=== PATIENT | female | born 1985 | race Caucasian/White ===

== ENCOUNTER 2021-02-07 09:42 | Outpatient (CLI) | payer OTHER, SELFPAY ==
--- NOTE | ~2021-02-07 | US_ITS ---
EXAMINATION: US pelvic complete w TV DATE: 02/07/2021 10:22 INDICATION: Ovarian cyst, irregular bleeding and pelvic pain TECHNIQUE: Multiple transabdominal and endovaginal sonographic images of the pelvis were obtained. COMPARISON: None. FINDINGS: The uterus measures 9.0 x 4.6 x 5.8 cm. The endometrial complex measures 6 mm. There is a s mall amount of fluid in the endometrial canal. A section scar is noted in the lower anterior uterine body. The right ovary measures 1.6 x 2.4 x 1.4 cm. The left ovary measures 2.8 x 3.2 x 3.2 c m and contains a 2.2 cm cyst. There is normal vascular flow in the ovaries. There is no free fluid in the pelvis. IMPRESSION: 1. No sonographic correlate for the patient's symptoms. Reviewed, dictated and finalized at location B.
== END 2021-02-07 09:43 | disposition home or self-care (01) ==
PROVIDERS: PCP Family Medicine; Visit Provider Obstetrics & Gynecology
DX: N83.209 Unspecified ovarian cyst, unspecified side (principal); N93.9 Abnormal uterine and vaginal bleeding, unspecified
CPT/HCPCS: 76830; 76856

== ENCOUNTER 2021-02-17 13:34 | Outpatient (CLI) | payer OTHER, SELFPAY ==
[2021-02-17 14:09] LABS: Hematocrit 42.1 % (37.0-47.0); Hemoglobin 13.8 g/dL (12.0-15.0); Mean Corpuscular HGB Conc 32.8 g/dl (32-36); Mean Corpuscular Hemoglobin 32.6 pg (26-34); Mean Corpuscular Volume 99.5 fl (80-100); Mean Platelet Volume 10.7 fl (7.4-10.4); Platelet Count Result 156 k/mm3 (150-375); Red Blood Count 4.23 M/mm3 (4.2-5.4); Red Cell Distribution Width 11.9 % (11.5-14.5); White Blood Count 6.4 K/mm3 (4.5-10.0)
[2021-02-17 16:07] LABS: Thyroid Stimulating Hormone Reflex 0.363 uIU/mL (0.465-4.68)
[2021-02-17 17:41] LABS: Total Triiodothyronine (T3) 1.02 NG/ML (0.97-1.69)
== END 2021-02-17 13:35 | disposition home or self-care (01) ==
PROVIDERS: PCP Family Medicine; Visit Provider Obstetrics & Gynecology
DX: N92.1 Excessive and frequent menstruation with irregular cycle (principal)
CPT/HCPCS: 36415; 84439; 84443; 84480; 85027

== ENCOUNTER 2021-04-04 17:02 | Outpatient (CLI) | payer OTHER, SELFPAY ==
--- NOTE | ~2021-04-04 | US_ITS ---
EXAMINATION: US pelvic complete w TV DATE: 04/04/2021 17:31 INDICATION: Pelvic pain and excessive vaginal bleeding. TECHNIQUE: Multiple transabdominal and endovaginal sonographic images of the pelvis were obtained. COMPARISON: None. FINDINGS: The anteverted uterus measures 9.1 x 3.9 x 5.1 cm. The endometrial complex measures 5-6 mm in thickn ess. The right ovary measures 4.3 x 3.3 x 3.0 cm. 2.5 cm anechoic cyst in the right ovary. The left o vary measures 2.0 x 1.5 x 1.6 cm. Vascular flow identified in both ovaries on color Doppler. There is no free fluid in the pelvis. IMPRESSION: 1. Normal pelvic ultrasound with 2.5 cm anechoic cyst/dominant follicle in the right ovary. Reviewed, dictated and finalized at location A.
== END 2021-04-04 17:03 ==
LOC: MICIMG 17:03
PROVIDERS: Visit Provider Obstetrics & Gynecology
DX: R10.2 Pelvic and perineal pain (principal)
CPT/HCPCS: 76830; 76856

== ENCOUNTER → 2021-04-14 04:45 | Outpatient (CLI) | payer OTHER, SELFPAY ==
[2021-04-14 18:47] LABS: SARS-CoV-2 RNA PCR Negative
== END ==
PROVIDERS: Visit Provider Obstetrics & Gynecology
DX: Z01.812 Encounter for preprocedural laboratory examination (principal); Z20.822 Contact with and (suspected) exposure to COVID-19
CPT/HCPCS: C9803; U0003; U0005

== ENCOUNTER 2021-04-17 01:06 | Day surgery (SDC) | payer OTHER, SELFPAY ==
[2021-04-13 12:53] VITALS: BMI 23.5
--- NOTE | 2021-04-14 16:10 | WPDANESEPPF ---
Anes - Initial Pre Proc Eval Procedure: Operation Date: 04/17/21 12:00 Proposed Procedures p Hysteroscopy, Dilation and Curettage with Saranay Endometrial Ablation - Brittany Avila MD Date/Time: 04/14/21 16:10 Surgeon: Brittany Avila MD Pre Op Diagnosis: menometrrohaghia Patient Data Age: 35 Gender: F Height: 1.7 m Weight: 68.18 kg Allergies Allergy/AdvReac Type Severity Reaction Status Date / Time No Known Allergies Allergy Verified 04/17/21 09:27 Home Medications Medication Instructions Recorded Confirmed Type biotin 1 mg capsule 1 mg PO DAILY 01/06/21 04/17/21 History folic acid 1 mg tablet 1 mg PO DAILY 01/06/21 04/17/21 History magnesium L-lactate 84 mg See Rx Instructions PO TID 01/06/21 04/17/21 History tablet,extended release mecobalamin (vitamin B12) 1,000 1,000 mcg PO DAILY 01/06/21 04/17/21 History mcg chewable tablet ondansetron HCl 4 mg tablet 4 mg PO Q8H PRN 01/06/21 04/17/21 History hydrocodone-acetaminophen 1 tablet Q4H PRN 04/13/21 04/17/21 History norethindrone (contraceptive) 0.35 mg PO DAILY 04/13/21 04/17/21 History Patient hx anesthesia problems: none Family hx anesthesia problems: none PMFSH Past Medical History Medical History Elective 2 Medullary sponge kidney Missed x1 Ovarian cyst Surgical History Surgical History History of bilateral tubal ligation 02/2019 History of cystoscopy 14 History of lithotripsy 11 Previous section x3 Family History Family History Mother Hypertension Diabetes mellitus Father Hypertension Social History Social History Smoking status: Never smoker Second hand tobacco smoke exposure: No Alcohol intake: current Drinks per week: 2 Substance use: never Substance use type: does not use Living arrangements: with family Spiritual care concerns: No Anes - Eval Final PreProcedure Day of Procedure 04/14/21 16:10 Patient weight: overweight Heart: regular rate and rhythm Lungs: clear to auscultation and normal air movement Airway: Mallampati scale class II Neurological: alert and oriented Last oral intake: >/= 8 hours ASA classification: II Emergent: no Anesthetic plan: proceed Anesthesia type and monitoring: general GIVS and LMA Informed Consent: The patient's anesthetic plan and its attendant risks and benefits were discussed with the patient/family/POA. Questions were solicited and answers provided to the satisfaction of the patient/family/POA.
--- NOTE | 2021-04-16 08:17 | PM.IMHP ---
H&P: HPI History of Present Illness Date/Time: 04/16/21 08:17 She has heavy monthly cycles with frequent breakthrough bleeding despite being on higest dose OCP. Coming in for ablation Chief Complaint: Heavy irregular bleeding Review of Systems Review of Systems: All systems reviewed & are unremarkable except as noted in HPI and below PMFSH Past Medical History Medical History Elective 2 Medullary sponge kidney Missed x1 Ovarian cyst Surgical History Surgical History History of bilateral tubal ligation 02/2019 History of cystoscopy 14 History of lithotripsy 11 Previous section x3 Family History Family History Mother Hypertension Diabetes mellitus Father Hypertension Social History Social History Smoking status: Never smoker Second hand tobacco smoke exposure: No Alcohol intake: current Drinks per week: 2 Substance use: never Substance use type: does not use Spiritual care concerns: No Meds Home Medications and Allergies Home Medications Medication Instructions Recorded Confirmed Type biotin 1 mg capsule 1 mg PO DAILY 01/06/21 04/13/21 History folic acid 1 mg tablet 1 mg PO DAILY 01/06/21 04/13/21 History magnesium L-lactate 84 mg See Rx Instructions PO TID 01/06/21 04/13/21 History tablet,extended release mecobalamin (vitamin B12) 1,000 1,000 mcg PO DAILY 01/06/21 04/13/21 History mcg chewable tablet ondansetron HCl 4 mg tablet 4 mg PO Q8H PRN 01/06/21 04/13/21 History hydrocodone-acetaminophen 1 tablet Q4H PRN 04/13/21 04/13/21 History norethindrone (contraceptive) 0.35 mg PO DAILY 04/13/21 04/13/21 History Allergies Allergy/AdvReac Type Severity Reaction Status Date / Time No Known Allergies Allergy Verified 04/10/21 09:52 Exam Const: General: healthy appearing, no acute distress, alert and awake Resp: Auscultation: clear to auscultation bilaterally Cardio: Rate: regular rate Rhythm: regular rhythm GI: Inspection: non-distended GI Palp: Yes Soft to palpation and No Tenderness to palpation present (GI) : Bimanual exam- vagina & uterus: uterine size normal, uterine mobility normal, non-tender and soft Bimanual Exam- Adnexa, other: normal adnexae, no masses and No adnexal tenderness Extrem: General: no pedal edema and no calf tenderness Psych: Mental Status: mental status grossly normal Assessment and Plan Assessment and plan (1) Menometrorrhagia: Code(s): N92.1 - Excessive and frequent menstruation with irregular cycle Status: Acute Assessment and Plan: She opted and signed consent for D&C, hysteroscopy, and endometrial ablation after risks, benefits, complications, and alternatives discussed. She is s/p BTL fo contraception. She expressed understanding of risks/benefits and wishes to proceed.
[2021-04-17] VITALS (7 sets, daily range): BP systolic 117–136; BP diastolic 79–90; PULSE 68–76; RESP 16–20; TEMP 36.7; O2SAT 100; BMI 24.4
[2021-04-17] MEDS: ACETAMINOPHEN 500 MG TABLET 1000 MG PO (09:51)
[2021-04-17] MEDS: LACTATED RINGERS 1,000 ML 30 ML IV CONT ×2 (10:00→13:12)
--- NOTE | 2021-04-17 11:39 | WPDHPUPDATE1 ---
History and Physical Update Update Date/Time: 04/17/21 11:39 History and Physical has been reviewed, including an updated exam of the patient. There are NO changes in the patient's condition. Risks, benefits, and alternatives have been discussed and questions answered. Patient agrees to proceed with procedure.
[2021-04-17] MEDS: SCOPOLAMINE 1.5 MG PATCH TRANSDERM (11:47)
--- NOTE | 2021-04-17 11:51 | W.PM.PROC2 ---
Procedure Note - Detailed Date of Procedure 04/17/21 Pre-op Diagnosis menometrorrhagia Post-op Diagnosis same Procedure Performed D&C, hysteroscopy, Saranya ablation Surgeon Brittany Avila MD Anesthesia MAC Findings normal endometrial cavity, excellent appearing ablation Description of Procedure She was taken to the operating room where she was sedated and placed in the dorsal lithotomy position. A speculum was placed in the vagina. The cervix was grasped with an single-tooth tenaculum on the anterior lip. The uterus sounded to 8 cm. The cervix was dilated to allow passage of the hysteroscope, which revealed a normal endometrial cavity with both tubal ostia identified. A sharp curettage was performed and the curettings sent for pathologic evaluation. A 8. Hegar dilator was used to measure the endocervical canal at 2.5 cm, yielding an entire cavity length of 5.5 cm. The minora device was introduced. The cavity assessment passed on the 1st attempt. The cycle ran for 2 minutes. The maneuver device was removed. A 2nd look was taken with the hysteroscope, which revealed an excellent appearing ablation. The hysteroscope was removed. The tenaculum was removed. Both tenaculum sites were bleeding slightly. Pressure was held with ring forceps and Allis clamp until excellent hemostasis was assured. She all instruments removed from the vagina. She tolerated the procedure well. Sponge, lap, and instrument counts were correct x2. She was taken to the recovery room in stable condition. Estimated Blood Loss 10 Drains No Packing No Pathology yes Complications No immediate complications Condition stable Disposition PACU
[2021-04-17] MEDS: fentaNYL CITRATE INJ (*CRX) 100 MCG/2 ML VIAL 25 MCG IV PUSH ×2 (12:43→12:50)
[2021-04-17] MEDS: KETOROLAC 30 MG/ML VIAL (*BKC) IV PUSH (13:07)
[2021-04-17] MEDS: ONDANSETRON INJ 4 MG/2 ML VIAL IV PUSH (13:10)
[2021-04-17] MEDS: HYDROmorphone HCL INJ (*CRX) 1 MG/ML SYR 0.25 MG IV PUSH ×4 (13:39→14:31)
[2021-04-17] MEDS: oxyCODONE HCL (*CRX) 5 MG TAB IR PO (14:03)
== END 2021-04-17 14:50 | disposition home or self-care (01) ==
PROVIDERS: PCP Family Medicine; Visit Provider Obstetrics & Gynecology
PROC: 0U5B8ZZ Destruction of Endometrium, Via Natural or Artificial Opening Endoscopic (ICD-10-PCS; CPT 58563; principal; 2021-04-17 12:00)
DX: N92.1 Excessive and frequent menstruation with irregular cycle (principal); Q61.5 Medullary cystic kidney
CPT/HCPCS: 58563; 88305; A9270; J1100; J1170; J1885; J2250; J2405; J2704; J3010; J7120

== ENCOUNTER 2021-12-20 10:40 | Outpatient (CLI) | payer OTHER, SELFPAY ==
[2021-12-20 12:19] LABS: Add Urine Microscopic? YES; Appearance Urine Cloudy (Clear); Bacteria Urine 3+ /hpf; Bilirubin Urine Negative (Negative); Blood Urine Negative (Negative); Color Urine Yellow (Yellow); Glucose Urine UA Negative (Negative); Ketones Urine Negative (Negative); Leukocyte Esterase Ur Negative LEU/UL (NEGATIVE); Mucus Urine Rare /lpf; Nitrate Urine Positive (Negative); Protein Urine Negative (Negative); RBC Urine 0-2 /hpf (0-2); Specific Grav Ur 1.018 (1.001-1.035); Squamous Epithelial Cell Urine Many /hpf (Few); Urobilinogen Urine Negative mg/dL (<2.0)
[2021-12-20 12:22] LABS: Albumin Level 4.8 g/dL (3.5-5.1); Anion Gap 11 mmol/L (8-16); Blood Urea Nitrogen 15 mg/dL (7-17); Carbon Dioxide 24 mmol/L (22-30); Chloride 104 mmol/L (98-107); Estimated Glomerular Filt Rate > 60; Glucose 95 mg/dL (65-110); Phosphorus 3.3 mg/dL (2.5-4.5); Potassium 3.8 mmol/L (3.4-5.0); Sodium 139 mmol/L (137-145); Uric Acid 5.3 mg/dL (2.5-7.5)
[2021-12-20 12:34] LABS: Parathyroid Intact 48.7 pg/mL (7.5-53.5)
== END 2021-12-20 10:41 | disposition home or self-care (01) ==
LOC: ANHLAB 10:45
PROVIDERS: Visit Provider Internal Medicine Nephrology
DX: N20.0 Calculus of kidney (principal)
CPT/HCPCS: 36415; 80069; 81001; 83970; 84550

== ENCOUNTER 2023-07-08 19:22 | Emergency (ER) | payer MEDICAID, SELFPAY ==
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
--- NOTE | 2023-07-08 20:23 | PC.NURSE ---
called for triage. no answer.
[2023-07-08 20:41] VITALS: BP 124/74; PULSE 102; RESP 15; TEMP 36.6; O2SAT 100
== END 2023-07-08 21:00 | disposition left against medical advice (07) ==
LOC: ANHED 22:58
PROVIDERS: Emergency Provider Emergency Medicine
DX: M54.2 Cervicalgia (principal); R51.9 Headache, unspecified; M79.645 Pain in left finger(s); M79.661 Pain in right lower leg; V49.40XA Driver injured in collision with unspecified motor vehicles in traffic accident, initial encounter
CPT/HCPCS: 70450; 72125; 73140; 73590; 99199

== ENCOUNTER 2024-08-19 11:16 | Emergency (ER) | payer OTHER, SELFPAY ==
--- NOTE | ~2024-08-19 | XR_ITS ---
XR ankle LT min 3V Ordering provider: Racheal oCon APRN History: . lateral ankle painrolled ankle 10 days ,then reinjured Satur . Comparison: None. FINDINGS: BONES: No acute fracture or dislocation. JOINT SPACES: The ankle mortise is normal. SOFT TISSUES: Normal. IMPRESSION: No acute osseous abnormality left ankle. Reviewed, dictated and finalized at location A.
[2024-08-19 11:33] VITALS: BP 140/105; PULSE 71; RESP 16; TEMP 36.3; O2SAT 100
--- NOTE | 2024-08-19 11:36 | ED.LOWEXIN ---
HPI - Extremity Injury (Lower) General Chief Complaint: Extremity Injury, Lower Stated Complaint: ankle injury Time Seen by Provider: 08/19/24 11:51 Source: patient, RN notes reviewed and old records reviewed Mode of arrival: ambulatory Limitations: no limitations History of Present Illness HPI Narrative: Patient presents with complaints of left ankle pain. She reports that she initially injured the ankle 10 days ago, then re-injured it 4 days ago. She reports that pain is increased with weight-bearing, has been taking ibuprofen with poor relief. Pain is both lateral and medial. Related Data Home Medications Medication Instructions Recorded Confirmed nitrofurantoin 100 mg PO DAILY 08/19/24 08/19/24 monohydrate/macrocrystals 100 mg capsule tamsulosin 0.4 mg capsule 0.4 mg PO DAILY 08/19/24 08/19/24 Allergies Allergy/AdvReac Type Severity Reaction Status Date / Time No Known Allergies Allergy Verified 08/19/24 11:22 Review of Systems Review of Systems: All systems reviewed & are unremarkable except as noted in HPI and below Constitutional: Constitutional: Reports no additional constitutional complaints ENT: Reports system reviewed and no additional complaints, except as documented Cardiovascular: Cardiovascular: Reports no additional cardiovascular complaints Respiratory: Respiratory: Reports no additional respiratory complaints Gastrointestinal: Gastrointestinal: Reports no additional gastrointestinal complaints Musculoskeletal: Musculoskeletal: Reports no additional musculoskeletal complaints, Reports as per HPI and Reports joint swelling (left lateral ankle) [facility] Past Medical History Medical History Elective 2 Medullary sponge kidney Missed x1 Ovarian cyst Surgical History Surgical History History of bilateral tubal ligation 02/2019 History of cystoscopy 14 History of lithotripsy 11 Previous section x3 Family History Family History Mother Hypertension Diabetes mellitus Father Hypertension Social History Social History Smoking status: Never smoker Second hand tobacco smoke exposure: No Alcohol intake: current Drinks per week: 2 Alcohol use details: socially Substance use: never Substance use type: does not use Living arrangements: with family Spiritual care concerns: No Comments At the time of my signature, I reviewed and agree with the nursing past medical, surgical, social, and family history. There is no relevant family history pertinent to the patient complaint. Exam Const: General: cooperative, no acute distress, alert and awake Orientation/consciousness: oriented to person, oriented to place and oriented to time HENMT: Head: normal to inspection Resp: Effort & Inspection: normal respiratory effort and able to speak in complete sentences Auscultation: clear to auscultation bilaterally, no crackles, no rales, no rhonchi and no wheezes Cardio: Palpation: normal PMI Rate: regular rate Rhythm: regular rhythm Heart sounds: S1 normal heart sound present and S2 normal heart sound present Neuro: General: oriented to person, oriented to place and oriented to time Cranial nerves: Yes CN's II-XII intact bilaterally Extrem: Left lower extremity: normal capillary refill and ankle Details: tenderness Location: of the lateral malleolus, of the medial malleolus and posteriorly and swelling Details: laterally Psych: Appearance: grossly normal Thought process: Normal thought process present Insight: Good insight present (Psych) Judgement: Good judgement present (Psych) Course Course Level of Care: Express Care Visit Vital Signs Vital signs: Vital Signs Temperature 97.3 F L 08/19/24 11:33 Pulse
== END 2024-08-19 12:15 | disposition home or self-care (01) ==
PROVIDERS: Emergency Provider Nurse Practitioner Family; PCP Family Medicine
DX: S93.402A Sprain of unspecified ligament of left ankle, initial encounter (principal); S96.912A Strain of unspecified muscle and tendon at ankle and foot level, left foot, initial encounter; R03.0 Elevated blood-pressure reading, without diagnosis of hypertension; X58.XXXA Exposure to other specified factors, initial encounter
CPT/HCPCS: 73610; 99213; G0463

== ENCOUNTER 2025-05-22 15:27 | Emergency (ER) | payer OTHER, SELFPAY ==
--- NOTE | ~2025-05-22 | XR_ITS ---
EXAM: XR ankle LT min 3V DATE: 05/22/2025 16:05 HISTORY: injury 2 weeks ago, lateral pain swelling . COMPARISON: 08/19/2024. FINDINGS: Normal mineralization. No fracture or dislocation. No lytic or blastic lesion. Joint space s are maintained. No erosion or periosteal change. Lateral soft tissue swelling. IMPRESSION: No acute osseous finding in the left ankle. Reviewed, dictated and finalized at location K.
--- NOTE | 2025-05-22 15:29 | ED_ITS ---
HPI - Extremity Injury (Lower) General Chief Complaint: Extremity Injury, Lower Stated Complaint: ankle injury Time Seen by Provider: 05/22/25 15:29 Source: patient Mode of arrival: ambulatory Limitations: no limitations History of Present Illness HPI Narrative: Patient is a 39-year-old female who presents with left ankle pain. Patient states she injured ankle 15 days ago when she missed the last step and twisted ankle sideways. Patient states she heard a pop when she fell. Denies hitting her head or any LOC at that time. 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 still reports significant swelling and pain Related Data Allergies Allergy/AdvReac Type Severity Reaction Status Date / Time No Known Allergies Allergy Verified 05/22/25 15:49 Review of Systems Review of Systems: All systems reviewed & are unremarkable except as noted in HPI and below Constitutional: Constitutional: Denies body ache(s), Denies chills, Denies fat igue, Denies fever(s), Denies headache(s), Denies malaise and Denies weakness Eyes: Eyes: Denies blurry vision, Denies irritation and Denies loss of vision ENT: Denies otalgia, Denies headache(s), Denies nasal discharge, Denies sinus pain and Denies sore throat Cardiovascular: Cardiovascular: Denies chest pain, Denies irregular heart rhythm and Denies dyspnea Respiratory: Respiratory: Denies dyspnea Gastrointestinal: Gastrointestinal: Denies abdominal pain, Denies melena, Denies hematochezia, Denies diarrhea, Denies nausea and Denies vomiting Musculoskeletal: Musculoskeletal: Denies back pain, Denies myalgias, Reports arthralgias and Reports joint swelling Integumentary/Breasts: Skin/Breast: Denies pruritus and Denies rash Neurologic: Denies headache(s), Denies loss of vision and Denies weakness Psychiatric: Psychiatric: Reports no additional psychiatric complaints Endocrine: Endocrine: Denies fatigue PMFSH Past Medical History Medical History Ovarian cyst Elective 2 Missed x1 Medullary sponge kidney Surgical History Surgical History History of cystoscopy 14 History of lithotripsy 11 History of bilateral tubal ligation 02/2019 Previous section x3 Family History Family History Mother Hypertension Diabetes mellitus Father Hypertension Social History Social History Smoking status: Never smoker Second hand tobacco smoke exposure: No Alcohol intake: current Drinks per week: 2 Alcohol use details: socially Substance use: never Substance use type: does not use Living arrangements: with family Spiritual care concerns: No Comments At time of signature, agree with nursing past medical, surgical, social and family history. There is no relevant family history pertinent to the presenting complaint. Exam Const: General: cooperative, healthy appearing, comfortable, no acute distress and well nourished Nutritional Appearance: well nourished Orientation/consciousness: patient oriented x3 Limitations: no limitations HENMT: Head: normal to inspection, normocephalic and atraumatic Ears: hearing grossly normal bilaterally and external ears normal Face/Nose/Sinus: Normal external nose present, normal facial exam and face symmetric Face and sinus: normal facial exam and face symmetric Mouth: Yes lip normal Eyes: General: appearance normal, both eyes and all related structures Alignment and Position: alignment normal and position normal Periorbital: periorbital findings normal Eyelids: eyelids normal Pupils: Equal, round and reactive pupils present EOM: EOMs intact bilaterally Neck: Neck: normal visual inspection, full ROM and supple Chest: Chest palpation & inspection: normal inspection of the chest Resp: Effort & Inspection: normal respiratory effort and able to speak in complete sentences Auscultation: clear to auscultation bilaterally Cardio: Rate: regular rate Rhythm: regular rhythm Heart sounds: S1 normal heart sound present and S2 normal heart sound present GI: Inspection: normal to inspection Skin: General skin exam: normal color and no rashes or lesions noted Neuro: General: patient oriented x3 and moves all extremities Cranial nerves: Yes Equal, round and reactive pupils present Speech: normal speech Gait exam (Neuro): Normal gait present Extrem: General: normal to inspection, full ROM and no edema Left lower extremity: lower leg Details: normal to inspection and no edema; no erythema, no tenderness, no ecchymosis and no deformity, ankle Details: tenderness Location: of the lateral malleolus, swelling Details: laterally and abnormal ROM Details: pain with active ROM Details: with plantar flexion, with dorsiflexion, with inversion and with eversion; no ecchymosis and achilles tendon exam normal and foot Details: normal capillary refill, toes with normal ROM, vascular exam Details: dorsalis pedis pulse present and normal capillary refill and tendon exam active flexion normal and active extension normal; no tenderness, no unusual warmth and no ecchymosis Psych: Appearance: grossly normal and well kempt Mental Status: mental status grossly normal Speech and movement: Normal speech and movement present Affect: normal affect Attitude: cooperative Thought process: Normal thought process present Course Course Emergency Course: Patient is aware of diagnosis, understands and agrees to treatment plan. Anticipatory guidance given. Patient agrees to follow-up as directed and is aware of reasons to seek care at the emergency department. Portions of this record may have been created with voice recognition software Level of Care: Express Care Visit Vital Signs Vital signs: Vital Signs Temperature 36.6 C 05/22/25 15:38 Pulse Rate 94 05/22/25 15:38 Respiratory Rate 18 05/22/25 15:38 Blood Pressure 117/88 05/22/25 15:38 Pulse Oximetry 99 05/22/25 15:38 Oxygen Delivery Room Air 05/22/25 15:38 Temperature 36.6 C 05/22/25 15:38 Pulse Rate 94 05/22/25 15:38 Respiratory Rate 18 05/22/25 15:38 Blood Pressure 117/88 05/22/25 15:38 Pulse Oximetry 99 05/22/25 15:38 Oxygen Delivery Room Air 05/22/25 15:38 Reviewed MDM - Extremity Injury (Lower) MDM Narrative Medical decision making narrative: Patient is able to bear weight and ambulate with mild pain. No surface of trauma. No overlying erythema or warmth. The L ankle is with significant lateral swelling when comparing to the R. Patient has no pain with dorsiflexion, plantar flexion, eversion, and inversion. Tenderness to lateral ankle on palpation. Motor and neurovascular status intact. Pt well hydrated appearing, in no respiratory distress, hemodynamically stable. Recommend supportive care. The patient is stable at time of discharge the clinical impression was discussed and the patient was given the opportunity to ask questions, which were addressed as completely as possible given the information available at present. Anticipatory guidance and return to care precautions were discussed and the importance of primary care follow-up was stressed and encouraged. The patient voiced understanding of the plan, indications to return, and the need for follow-up. Exam findings show no acute concerns or changes Patient is appropriate for outpatient treatment and follow-up. Differential Diagnosis Differential diagnosis: Likely ankle sprain and strain and ankle fracture Medical Records Attestation: I reviewed the patient's medical records. Discharge Plan Discharge Clinical Impression: Ankle sprain and strain Patient Disposition: Home Condition: Stable Instructions: Ankle Sprain (ED) Additional Instructions: Xray showed no fracture. Minimize activities that aggravate the condition The RICE protocol. Follow the RICE protocol as soon as possible after your injury: Rest your ankle by not walking on it. Ice should be immediately applied to keep the swelling down. It can be used for 20 to 30 minutes, three or four times daily. Do not apply ice directly to your skin. Compression dressings, bandages or kg-wraps will immobilize and support your injured ankle. Elevate your ankle above the level of your heart as often as possible during the first 48 hours. Medication: Nonsteroidal anti-inflammatory drugs (NSAIDs) such as ibuprofen and naproxen can help control pain and swelling. Because they improve function by both reducing swelling and controlling pain, they are a better option for mild sprains than narcotic pain medicines. For pain, you may take: Tylenol 650mg by mouth every 4 hours. Do not exceed 4000mg in 24 hours. Advil (Ibuprofen) 800 mg by mouth every 8 hours. Do not exceed 2400mg in 24 hours. 8 AM: Tylenol 12 pM: Ibuprofen 4 PM: Tylenol 8 PM: Ibuprofen 12 AM: Tylenol 4 AM: Ibuprofen Please schedule a follow-up visit with your personal physician for further evaluation and treatment within 1week OR If your symptoms persist, change or worsen significantly before you can contact your personal physician then please, without delay, go to the emergency department for further evaluation. Patient Language: Tunisian Prescriptions: New ibuprofen 800 mg tablet 800 mg PO Q8H Qty: 60 0RF Follow-up/Referrals: Ermias,Rip Mason MD [Primary Care Provider] - 3 Days Stand Alone Forms: Work/School Release IP Time of Disposition: 17:05
--- OUTSIDE RECORDS SUMMARY | 2025-05-22 15:30 | XMS_ITS | Clinical Summary ---
Author Organization [facility] Address [address] [place] [phone] Phone Care Team Providers Care Tack Coverer Name Role Phone Rip Monson MD Primary Care Provider [phone] Allergies No known active allergies Medications biotin 300 MCG tablet tablet Take 1 tablet by mouth daily Active ferrous sulfate 325 (65 Fe) MG EC tablet Take 325 mg by mouth daily Active folic acid (FOLVITE) 800 MCG tablet Take 800 mcg by mouth daily Active HYDROcodone-acet aminophen 10-325 MG per tablet Take 1 tablet by mouth every 4 (four) hours if needed for pain 2 Active magnesium (MAGTAB) 84 MG (7MEQ) CR tablet Take 168 mg by mouth 9 Active ondansetron ODT (ZOFRAN-ODT) 4 MG dispersible tablet 2 Active tamsulosin (FLOMAX) 0.4 MG 24 hr capsule 2 Active oxybutynin (DITROPAN) 5 MG tablet oxybutynin chloride 5 mg tablet Active cyanocobalamin (VITAMIN B-12) 1000 MCG tablet Take 1,000 mcg by mouth 1 (one) time each day Active Active Problems Problem Noted Date Diagnosed Date Nephrolithiasis 12/05/2018 Medullary sponge kidney 12/05/2018 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 11/28/2018 Immunizations Immunization Administration Dates Next Due Hepatitis B 05/08/2018 Influenza, Unspecified 08/02/2017,08/03/2016 Tdap 03/06/2019 Social History Tobacco Use Types Packs/Day Years Used Date Smoking Tobacco: Never Smokeless Tobacco: Never Alcohol Use Standard Drinks/Week Comments Yes 0 (1 standard drink = 0.6 oz pur e alcohol) occasional Comments Unknown Sex and Gender Information Value Date Recorded Sex Assigned at Not on file Legal Sex Female 9:31 AM MDT Gender Identity Not on file Sexual Orientation Not on file Last Filed Vital Signs Vital Sign Reading Time Taken Comments Blood Pressure 122/70 12/20/2021 10:15 AM KNITTING SUPERVISOR Pulse 72 12/20/2021 10:15 AM KNITTING SUPERVISOR Temperature 36.7 C (98 F) 12/20/2021 10:15 AM KNITTING SUPERVISOR Respiratory Rate - - Oxygen Saturation - - Inhaled Oxygen Concentration - - Weight 71.7 kg (158 lb) 12/20/2021 10:15 AM KNITTING SUPERVISOR Height 170.2 cm (5' 7) 12/20/2021 10:15 AM KNITTING SUPERVISOR Body Mass Index 24.75 12/20/2021 10:15 AM KNITTING SUPERVISOR Plan of Treatment Health Maintenance Due Date Last Done Comments Influenza Vaccine (#1) 2025 08/02/2017, 2015 Insurance [facility] MEDICAID - [place] Care Teams Tack Coverer Relationship Specialty [place] [id number] [place] [address] PCP - General Family Medicine 05/19/19
--- OUTSIDE RECORDS SUMMARY | 2025-05-22 15:30 | XMS_ITS | Referral Summary ---
Author Organization 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 No 11/29/2023 Social Connection and Isolat ion Panel [NHANES] Answer Date Recorded In a typical week, how many times do you talk on the phone with family, friends, or neighbors? More than three times a week 11/29/2023 How often do you get togethe r with friends or relatives? More than three times a week 11/29/2023 How often do you attend chur ch or sikhism services? Never 11/29/2023 Do you belong to any clubs o r organizations such as synagogue groups, unions, fraternal or athletic groups, or school groups? No 11/29/2023 How often do you attend meet ings of the clubs or organizations you belong to? Never 11/29/2023 Are you , , di vorced, , never , or living with a partner? Patient declined 11/29/2023 AUDIT-C Answer Date Recorded Q1: How often do you have a drink containing alc ohol? 2-3 times a week 11/29/2023 Q2: How many drinks containi ng alcohol do you have on a typical day when you are drinking? 1 or 2 11/29/2023 Q3: How often do you have si x or more drinks on one occasion? Weekly 11/29/2023 Overall Financial Resource Strain (CARDIA) Answe r Date Recorded How hard is it for you to pa y for the very basics like food, housing, medical care, and heating? Not hard at all 11/29/2023 Hunger Vital Sign Answer Date Recorded Within the past 12 months, y ou worried that your food would run out before you got the money to buy more. Never true 11/29/19 24 Within the past 12 months, t he food you bought just didn't last and you didn't have money to get more. Never true 11/29/2023 PRAPARE - Transportation Answer Date Re corded In the past 12 months, has l ack of transportation kept you from medical appointments or from getting medications? No 11/2023 In the past 12 months, has l ack of transportation kept you from meetings, work, or from getting things needed for daily living? No 11/29/2023 Housing Stability Vital Sign Answer Luis M e Recorded In the last 12 months, was t here a time when you were not able to pay the mortgage or rent on time? No 11/29/2023 In the last 12 months, how many places have you lived? 1 11/29/2023 In the last 12 months, was t here a time when you did not have a steady place to sleep or slept in a assisted (including now)? No 11/29/2023 Personal Safety Answer Date Recorded Have you ever been in or are you currently in a harmful physical or emotional relationship or is someone making you feel afraid or unsafe? Denies 11/29/2023 Comments Unknown Sex and Gender Information Value Date Recorded Sex Assigned at Not on file Legal Sex Female 10:57 AM QC ANALYST Gender Identity Not on file Sexual Orientation Not on file Last Filed Vital Signs Vital Sign Reading Time Taken Comments Blood Pressure 129/92 12/01/2023 1:13 PM QC ANALYST Pulse 84 12/01/2023 1:13 PM QC ANALYST Temperature 36.6 C (97.9 F) 12/01/2023 1:13 PM QC ANALYST Respiratory Rate 18 12/01/2023 1:13 PM QC ANALYST Oxygen Saturation 98% 12/01/2023 1:13 PM QC ANALYST Inhaled Oxygen Concentration - - Weight 70 kg (154 lb 5.2 oz) 11/29/2023 7:52 AM QC ANALYST Height 170.2 cm (5' 7.01) 11/29/2023 7:52 AM CS T Body Mass Index 24.16 11/29/2023 7:52 AM QC ANALYST Plan of Treatment Not on file Procedures Procedure Name Priority Date/Time Associated Diagnosis Comments HEPATITIS C ANTIBODY Routine 09/10/2018 from Last 3 Months or Most Recently Relevant to Health Maintenance Results * Hepatitis C antibody (09/10/2018) SCRIBED HCV ab negative Blood specimen (specimen) Aco Historical Provider LAB MICROBIOLOGY - NERAL ORDERABLES Final Result from Last 3 Months or Most Recently Relevant to Health Maintenance Insurance IDPA Advance Directives For more information, please contact: [phone] * Full Code (Latest Code Status on File) Date Activated Date Inactivated Comments 11/29/2023 5:45 AM 12/01/2023 8:27 PM Care Teams Chocolate Temperer Relationship Specialty Start Date End Date No, Physician PCP - General 11/07/18
--- OUTSIDE RECORDS SUMMARY | 2025-05-22 15:30 | XMS_ITS | Clinical Summary ---
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 Hypokalemia 11/29/2023 Hypernatremia 11/29/2023 Alcohol intoxication 11/29/2023 Pancytopenia 11/29/2023 Supervision of high risk , antepartum 0 11/20/2018 Medullary sponge kidney 11/20/2018 Previous delivery x 2 11/20/2018 Bilobed placenta 11/20/2018 Surgical History Surgery Date Site/Laterality Comments SECTION LITHOTRIPSY CERVICAL BIOPSY W/ LOOP ELECTRODE EXCISION INDUCED Medical History Medical History Date Comments Medullary sponge kidney Nephrolithiasis Pyelonephritis Social History Tobacco Use Types Packs/Day Years Used Date Smoking Tobacco: Never Smokeless Tobacco: Never [employer] Answer Date Recorded In the past 12 months has [employer], gas, oil, or water [employer] threatened to shut off services in your [...] often do you attend chur ch or methodist services? Never 11/29/2023 Do you belong to any clubs o r organizations such as confucianism groups, unions, fraternal or athletic groups, or [...] place to sleep or slept in a fci (including now)? No 11/29/2023 Personal Safety Answer Date Recorded Have you ever been in or are you currently in a harmful physical or emotional relationship or is someone making you feel afraid or unsafe? Denies 11/29/2023 Comments Unknown Sex and Gender Information Value Date Recorded Sex Assigned at Not on file Legal Sex Female 10:57 AM ROVING SIZER Gender Identity Not on file Sexual Orientation Not on file Obstetrics History Para Term AB IAB SAB Ectopic Multiple Livin g Live Births 7 2 2 4 2 2 2 Date Outcome GA Total Labor Labor/2nd/3rd Weight Sex Type Anes PTL Sue A1 A5 Name Clin AB AB SAB 2012 Term 3.487 kg (7 lb 11 oz) M CS-Un spec Living Complications:Breech deliver y 2014 Term 3.572 kg (7 lb 14 oz) CS-Un spec Living Last Filed Vital Signs Vital Sign Reading Time Taken Comments Blood Pressure 129/92 12/01/2023 1:13 PM ROVING SIZER Pulse 84 12/01/2023 1:13 PM ROVING SIZER Temperature 36.6 C (97.9 F) 12/01/2023 1:13 PM ROVING SIZER Respiratory Rate 18 12/01/2023 1:13 PM ROVING SIZER Oxygen Saturation 98% 12/01/2023 1:13 PM ROVING SIZER Inhaled Oxygen Concentration - - Weight 70 kg (154 lb 5.2 oz) 11/29/2023 7:52 AM ROVING SIZER Height 170.2 cm (5' 7.01) 11/29/2023 7:52 AM CS T Body Mass Index 24.16 11/29/2023 7:52 AM ROVING SIZER Plan of Treatment Health Maintenance Due Date Last Done Comments Cervical Cancer Screening 1987 Depression Screening 1987 Varicella Vaccines (1 of 2 - 13+ 2-dose series) 2000 Regular Well Visit/Exam 18-64 2005 HPV Vaccines (1 - 3-dose SCDM series) 2014 Covid-19 Vaccine ( - season) 2024 11/01/2020 Influenza Vaccine (#1) 2025 3, 09/01/2018, 09/01/2018, Additional history exists DTaP/Tdap/Td Vaccine (2 - Td or Tdap) 03/06/2029 03/06/2019 Hepatitis B Screening Completed 05/08/2018 Hepatitis C Screening Completed 09/10/2018 Pneumococcal vaccine <65 Aged Out No longer eligible based on patient's age to complete this topic Procedures Procedure Name Priority Date/Time Associated Diagnosis Comments HEPATITIS C ANTIBODY Routine 09/10/2018 from Last 3 Months or Most Recently Relevant to Health Maintenance Results * Hepatitis C antibody (09/10/2018) SCRIBED HCV ab negative Blood specimen (specimen) Aco Historical Provider LAB MICROBIOLOGY - GE NERAL ORDERABLES Final Result from Last 3 Months or Most Recently Relevant to Health Maintenance Insurance IDPA Advance Directives For more information, please contact: [phone] * Full Code (Latest Code Status on File) Date Activated Date Inactivated Comments 11/29/2023 5:45 AM 12/01/2023 8:27 PM Care Teams Monkey Breeder Relationship Specialty Start Date End Date No, Physician PCP - General 11/07/18
--- OUTSIDE RECORDS SUMMARY | 2025-05-22 15:30 | XMS_ITS | Clinical Summary ---
Author Organization [facility] Address [address] [facility] [place] [address] Care Team Providers Care Institutional Asset Manager Name Role Phone Rip Monson MD Primary Care Provider [phone] Source Comments [facility],non-owned Affiliates and Associated Physician Practices is amultiple site organization consisting of ambulatory clinics and hospital sitesin [place], [place], [place] and [place]. This disclosure is being madepursuant to the Care Everywhere program and may not contain all information available regarding this patient. Last updated 18.[facility] Allergies No known active allergies Medications * Be aware that medications may not be up to date on this document. Alwaysverify current medications with the patient. nitrofurantoin monohyd macro crystals (MACROBID) 100 MG capsule Take 100 mg by mouth once daily Active Vit-Fe Sulfate-FA ( MULTIVIT-IRON PO) Take by mouth once daily Active ferrous sulfate EC 325 (65 FE) MG tablet Take 325 mg by mouth once daily Active ondansetron, disintegrating, (ZOFRAN ODT) 4 MG tablet Take 4 mg by mouth every 6 hours as needed for Nausea/Vomiti ng Allow tablet to dissolve on the tongue Active magnesium lactate 84 MG (7MEQ) tabletIndicatio ns:Nephrolithia sis Take 2 tablets by mouth 2 times daily 280 tablet 4 12/15/2018 Active Active Problems Problem Noted Date Diagnosed Date Nephrolithiasis 12/05/2018 Medullary sponge kidney 12/05/2018 Social History Tobacco Use Types Packs/Day Years Used Date Smoking Tobacco: Never Smokeless Tobacco: Never Tobacco Cessation:Counseling Given: Not Answered Alcohol Use Standard Drinks/Week Comments No 0 (1 standard drink = 0.6 oz pur e alcohol) AUDIT-C Answer Date Recorded Q1: How often do you have a drink containing alc ohol? Monthly or less 09/09/2023 Q2: How many drinks containi ng alcohol do you have on a typical day when you are drinking? 1 or 2 09/09/2023 Q3: How often do you have si x or more drinks on one occasion? Never 09/09/2023 Comments Unknown Sex and Gender Information Value Date Recorded Sex Assigned at Not on file Legal Sex Female 2:06 PM FLIGHT PURSER Gender Identity Not on file Sexual Orientation Not on file Last Filed Vital Signs Vital Sign Reading Time Taken Comments Blood Pressure 104/63 09/09/2023 11:15 AM FLIGHT PURSER Pulse 82 09/09/2023 11:15 AM FLIGHT PURSER Temperature 36.7 C (98.1 F) 09/09/2023 3:15 AM FLIGHT PURSER Respiratory Rate 13 09/09/2023 11:15 AM FLIGHT PURSER Oxygen Saturation 95% 09/09/2023 10:00 AM FLIGHT PURSER Inhaled Oxygen Concentration - - Weight 58.1 kg (128 lb) 09/09/2023 3:15 AM FLIGHT PURSER Height 170.2 cm (5' 7) 09/09/2023 3:15 AM FLIGHT PURSER Body Mass Index 20.05 09/09/2023 3:15 AM FLIGHT PURSER Plan of Treatment Health Maintenance Due Date Last Done Comments HIV SCREENING 2002 HEPATITIS C SCREENING 11/25/2005 DTAP/TDAP/TD VACCINES (1 - Tdap) 2006 HEPATITIS B VACCINE (1 of 3 - 19+ 3-dose series) 2006 PAP SMEAR 2008 HPV VACCINE (1 - 3-dose SCDM series) 2014 COVID-19 VACCINE ( season) 2024 11/01/2020 DEPRESSION SCREENING 10/28/2024 INFLUENZA VACCINE (#1) 2025 3, 09/01/2018, 08/02/2017, Additional history exists ZOSTER VACCINE (1 of 2) 2037 HIB VACCINE Aged Out No longer eligi ble based on patient's age to complete this topic MENINGOCOCCAL (Group B) VACCINE SHARED DECISION-MAKING Aged Out No longer eligible based on patient's age to complete this topic MENINGOCOCCAL GROUPS A/C/Y/W VACCINE Aged Out No longer eligible based on patient's age to complete this topic PNEUMOCOCCAL VACCINE Aged Out No long er eligible based on patient's age to complete this topic Insurance MEDICAID - OUT OF STATE COUNT INCLUDES [facility] [place] [address] TP [employer] Care Teams Institutional Asset Manager Relationship Specialty Start Date End Date Rip Monson MD PCP - General 12/05/18
--- OUTSIDE RECORDS SUMMARY | 2025-05-22 15:34 | XMS_ITS | Encounter Summary ---
Author Organization [facility] Address [address] [place] [address] Care Team Providers Care Pleater Hand Name Role Phone Rip Monson MD Primary Care Provider [phone] Encounter Details Date Type Department Care Team (Late st Contact Info) Description 02/18/2022 United Preferencet Message Enc [facility] Medical Group Family & Internal Medicine [facility] [address] [place] [phone] [place] [id number] [place] [address] Macrobid Daily Social History Tobacco Use Types Packs/Day Years Used Date Smoking Tobacco: Never Smokeless Tobacco: Never Alcohol Use Standard Drinks/Week Comments Not Currently 0 (1 standard drink = 0.6 oz pur e alcohol) socially AUDIT-C Answer Date Recorded Frequency of Alcohol Consumption Never 05/11/2019 Average Number of Drinks Not on file 019 Frequency of Binge Drinking Not on file 04/27 PHQ-2 Answer Date Recorded PHQ-2 Score - If the patient scores above 3, please move on to questions 3-9 1 12/27/2021 Comments No Sex and Gender Information Value Date Recorded Sex Assigned at Not on file Legal Sex Female 6:55 PM CDT Gender Identity Not on file Sexual Orientation Not on file documented as of this encounter Plan of Treatment Not on file documented as of this encounter Visit Diagnoses Not on filedocumented in this encounter Additional Health Concerns Assessment Noted Time PHQ-9 Depression Total Score: 1 12/28/19 22 10:50 AM COLOR PASTE MIXING SUPERVISOR documented as of this encounter Care Teams Pleater Hand Relationship Specialty [place] [address] [place] [address] PCP - General FAMILY PRACTICE 05/11/19 documented as of this encounter
--- OUTSIDE RECORDS SUMMARY | 2025-05-22 15:34 | XMS_ITS | Encounter Summary ---
Author Organization [facility] Address [address] [place] [address] Care Team Providers Care Radiologic Technician Name Role Phone Rip Monson MD Primary Care Provider [phone] Encounter Details Date Type Department Care Team (Late st Contact Info) Description 03/22/2022 M Cubed Technologiest Message Enc [facility] Medical Group Family & Internal Medicine [facility] [id number] [place] [phone] [place]on [place] [id number] [place] [address] Medications/Vacation Social History Tobacco Use Types Packs/Day Years [...] Total Score: 1 12/28/19 22 10:50 AM CLASSIFIER OPERATOR documented as of this encounter Care Teams Radiologic Technician Relationship Specialty [place] [address] [place] [address] PCP - General FAMILY PRACTICE 05/11/19 documented as of this encounter
--- OUTSIDE RECORDS SUMMARY | 2025-05-22 15:35 | XMS_ITS | Clinical Summary ---
Author Organization [facility] Address [facility] [place] [address] Care Team Providers Care Braille Operator Name Role Phone Rip Monson MD Primary Care Provider [phone] Allergies No known active allergies Medications folic acid 800 MCG tablet Take 1 tablet (800 mcg total) by mouth daily. Active biotin 300 MCG Tab Take 1 tablet (300 mcg total) by mouth daily. Active valACYclovir (VALTREX) 500 MG tablet 3 Active mirabegron ER (MYRBETRIQ) 25 MG 24 hr tabletIndicatio ns:Urinary urgency Take 1 tablet (25 mg total) by mouth daily. 30 tablet 1 3 Active Additional Information Patient not taking.Reported on 07/29/2023 HYDROcodone-rony taminophen (NORCO) 10-325 MG tabletIndicatio ns:Chronic Pain Take 1 tablet by mouth every 4 (four) hours as needed for Pain. Indications: Chronic Pain 60 tablet 3 Active ferrous sulfate EC 325 (65 Fe) MG tabletIndicatio ns:Iron deficiency anemia Take 1 tablet (325 mg total) by mouth daily. 90 tablet 3 Active tamsulosin (FLOMAX) 0.4 MG CapIndications: Renal stone Take 1 capsule (0.4 mg total) by mouth daily. 90 capsule 3 Active HYDROcodone-Rony taminophen 10-300 MG TabIndications: Chronic Pain Indications: Chronic Pain Take 1 tablet by mouth every 4 hours as needed for pain 60 tablet 4 Active nitrofurantoin, macrocrystal-mo nohydrate, (MACROBID) 100 MG capsuleIndicati ons:Prophylacti c antibiotic Take 1 tablet by mouth daily. 90 capsule 4 Active magnesium lactate 84 MG (7MEQ) tabletIndicatio ns:B12 deficiency,Kidn ey stone,Nausea,Ne phrolithiasis Take 1 tablet (84 mg total) by mouth daily. 30 tablet 4 Active vitamin B-12 (CYANOCOBALAMIN ) (CYANOCOBALAMIN ) 1000 mcg tabletIndicatio ns:B12 deficiency Take 1 tablet (1,000 mcg total) by mouth daily. 90 tablet 4 Active oxybutynin (DITROPAN) 5 MG tabletIndicatio ns:Kidney stone Take 1 tablet (5 mg total) by mouth daily as needed. 90 tablet 4 Active ondansetron (ZOFRAN) 4 MG tabletIndicatio ns:Nausea Take 1 tablet (4 mg total) by mouth every 8 (eight) hours as needed for Nausea. 20 tablet 3 4 Active HYDROcodone-rony taminophen (NORCO) 10-325 MG tabletIndicatio ns:Chronic Pain Take 1 tablet by mouth every 6 (six) hours as needed for Pain. Indications: Chronic Pain 60 tablet 4 Active magnesium 250 MG tabletIndicatio ns:B12 deficiency Take 1 tablet (250 mg total) by mouth daily. 30 tablet 4 Active Active Problems Problem Noted Date Diagnosed Date Acute cystitis with hematuria 06/05/2020 Nephrolithiasis 06/05/2020 Status post placement of ureteral stent 06/05/20 20 Other insomnia 12/22/2019 Uterine scar from previous s urgery affecting ([facility]) 03/09/2019 Mental disorder affecting ([facility]) Calculus in pelviureteric junction 12/13/2018 Nephrolithiasis 12/05/2018 related renal dise ase, unspecified trimester ([facility]) 11/28/2018 Previous delivery, antepartum ([facility]) 11/20/2018 Supervision of high risk , antepartum ( [facility]) 11/20/2018 Renal disease during pregnan cy in second trimester ([facility]) 11/20/2018 -induced hypertension ([facility]) 019 examination or test, unconfi rmed 08/13/2018 Carcinoma in situ of exocervix 11/15/2017 Endometriosis 11/01/2017 Pain of female genitalia 11/01/2017 Papanicolaou smear of cervix with high grade squamous intraepithelial lesion (HGSIL) 10/25/2017 Left flank pain 09/06/2017 Neck pain 06/25/2017 Hematuria, unspecified type 11/15/2015 Generalized anxiety disorder 06/16/2015 Uses intrauterine device for control 03/16 Encounter for insertion of c opper intrauterine contraceptive device (IUD) 02/16/2015 Single live ([facility]) 12/15/2014 Uterine scar from previous c esarean delivery, with delivery ([facility]) 12/15/2014 Kidney stone 11/22/2014 Intrauterine growth restrict ion (IUGR) affecting care of mother ([facility]) 11/18/2014 Backache 11/12/2014 Generalized infection during labor ([facility]) Pyelonephritis 11/12/2014 Medullary sponge kidney of both kidneys 09/27/20 14 Screening for depression 07/08/2014 Congenital malformation 06/10/2014 test positive ([facility]) 05/12/2014 Secondary amenorrhea 05/12/2014 test negative 05/05/2013 Disproportion between head and pelvis ([facility]) 04/04/2013 , delivered ([facility]) 04/04/2013 Primigravida ([facility]) 03/25/2013 Genitourinary tract infectio n in mother during , antepartum ([facility]) 12/09/2012 Medullary sponge kidney Resolved Problems Problem Noted Date Diagnosed Date Resolved Date Influenza vaccination admini stered at current visit 08/02/2017 12/10/2022 Encounter for preventive health examination 04/14/2014 12/10/2022 Screening for malignant neoplasm of cervix 08/27/2013 12/10/2022 Immunizations Immunization Administration Dates Next Due Hepatitis B (Generic: Adult) 05/08/2018 Influenza (Generic) 08/13/2014,08/10/2013 Influenza Adult (Generic) 09/01/2018,08/02/2017, 08/03/2016 PFIZER COVID-19 (ORIGINAL FO RMULATION, PURPLE CAP) mRNA, LNP-S, PF, 30 MCG/0.3 ML DOSE 11/01/2020 Tdap (Boostrix) 03/06/2019 Family History Medical History Relation Comments No Known Problems Father Diabetes Mother type 2 Relation Status Comments Father Mother Social History Tobacco Use Types Packs/Day Years Used Date Smoking Tobacco: Never Smokeless Tobacco: Never Tobacco Cessation:Counseling Given: No Alcohol Use Standard Drinks/Week Comments Not Currently 0 (1 standard drink = 0.6 oz pur e alcohol) socially AUDIT-C Answer Date Recorded Frequency of Alcohol Consumption Never 05/11/2019 Average Number of Drinks Not on file 019 Frequency of Binge Drinking Not on file 04/27 PHQ-2 Answer Date Recorded Patient Health Questionnaire-2 Score 0 12/04/2022 Comments No Sex and Gender Information Value Date Recorded Sex Assigned at Not on file Legal Sex Female 6:55 PM CDT Gender Identity Not on file Sexual Orientation Not on file Last Filed Vital Signs Vital Sign Reading Time Taken Comments Blood Pressure 133/91 07/29/2023 11:34 AM CDT Pulse 80 07/29/2023 11:32 AM CDT Temperature 37.1 C (98.7 F) 07/29/2023 11:32 AM CDT Respiratory Rate 16 07/29/2023 11:32 AM CDT Oxygen Saturation 9% 07/29/2023 11:32 AM CDT Inhaled Oxygen Concentration - - Weight 63 kg (139 lb) 07/29/2023 11:32 AM CDT Height 170.2 cm (5' 7) 07/29/2023 11:32 AM CDT Body Mass Index 21.77 07/29/2023 11:32 AM CDT Plan of Treatment Health Maintenance Due Date Last Done Comments Cervical Cancer Screening Pa p Smear (Age 30 to 64) Every 3 Years 1987 Hepatitis C 2005 HPV Vaccines (1 - 3-dose SCD M series) 2014 Cervical Cancer Screening Pa p with HPV Testing (Age 30 to 64) Every 5 Years 2017 Cervical Cancer Screening with HPV 2017 Hepatitis B Vaccines (2 of 3 - 19+ 3-dose series) 06/05/2018 05/08/2018 COVID-19 Vaccine (2 - 2023-2 5 season) 2024 11/01/2020 Annual Physical 07/29/2024 07/29/2023 PHQ-2 (Physician Jena) 10/28/2024 DTaP, Tdap and Td Vaccines ( 2 - Td or Tdap) 03/06/2029 03/06/2019 Meningococcal B Vaccine Aged Out No l onger eligible based on patient's age to complete this topic Meningococcal Vaccine Aged Out No lars clarence eligible based on patient's age to complete this topic Pneumococcal Vaccine: Pediat rics (0 to 5 Years) and At-Risk Patients (6 to 49 Years) Aged Out No longer eligi ble based on patient's age to complete this topic RSV Immunizations Under 20 Months Aged Out No longer eligible based on patient's age to complete this topic Medical Devices Implanted Type Area Industry Analyst Device Identifier Shelf Expiration Date Model / Serial / Lot Bard Inlay [place] Ureteral Stent Implanted:Qty: 1 on 05/30/2020 by Kinjal Almeida MD at [facility] Stent Left: Ureter [employer] - [employer] 10/31/2023 [id number] / / [id number] Insurance [employer] Care Teams Braille Operator Relationship Specialty [place] [address] [place] [address] PCP - General FAMILY PRACTICE 05/11/19
--- OUTSIDE RECORDS SUMMARY | 2025-05-22 15:35 | XMS_ITS | Encounter Summary ---
Author Organization [facility] Address [address] [place] [address] Care Team Providers Care Tariff Counsel Name Role Phone Rip Monson MD Primary Care Provider [phone] Encounter Details Date Type Department Care Team (Late st Contact Info) Description 09/10/2023 [employer]View System[employer] Message Enc [facility] Medical Group Family & Internal Medicine [facility] [id number] [place] [phone] [place]ip [place]on [place] [id number] [place] [phone] Vacation/Meds Social History Tobacco Use Types Packs/Day Years [...] Total Score: 1 12/28/19 22 10:50 AM MECHANICAL METER TESTER documented as of this encounter Care Teams Tariff Counsel Relationship Specialty [place] [address] [place] [address] PCP - General FAMILY PRACTICE 05/11/19 documented as of this encounter
--- OUTSIDE RECORDS SUMMARY | 2025-05-22 15:35 | XMS_ITS | Encounter Summary ---
Author Organization [facility] Address [address] [place] [address] Care Team Providers Care Ice Skating Instructor Name Role Phone Rip Monson MD Primary Care Provider [phone] Encounter Details Date Type Department Care Team (Late st Contact Info) Description 04/27/2020 [employer] Message Enc [facility] Medical Group Multispecialty Care - [address], [address] [place] [address] [facility], [facility] Provider RE:Results Social History Tobacco Use Types Packs/Day Years Used Date Smoking Tobacco: Never Smokeless Tobacco: Never Alcohol Use Standard Drinks/Week Comments Yes 0 (1 standard drink = 0.6 oz pur e alcohol) socially AUDIT-C Answer Date Recorded Frequency of Alcohol Consumption Never 05/11/2019 Average Number of Drinks Not on file 019 Frequency of Binge Drinking Not on file 04/27 Comments No Sex and Gender Information Value Date Recorded Sex Assigned at Not on file Legal Sex Female 6:55 PM CDT Gender Identity Not on file Sexual Orientation Not on file COVID-19 Exposure Response Date Recorded In the last month, have you been in contact with someone who was confirmed or suspected to have Coronavirus / COVID-19? No / Unsure 04/26/2020 9:38 AM CDT documented as of this encounter Plan of Treatment Not on file documented as of this encounter Visit Diagnoses Not on filedocumented in this encounter Additional Health Concerns Infection Onset Date Last Indicated Resolved Time COVID-19 Rule Out 05/27/2020 05/27/2020 05/29/2020 10:53 AM CDT documented as of this encounter Care Teams Ice Skating Instructor Relationship Specialty [place] [address] [place] [address] PCP - General FAMILY PRACTICE 05/11/19 documented as of this encounter
--- OUTSIDE RECORDS SUMMARY | 2025-05-22 15:35 | XMS_ITS | Encounter Summary ---
Author Organization [facility] Address [address] [place] [address] Care Team Providers Care Amusement Or Recreation Card Checker Name Role Phone Rip Monson MD Primary Care Provider [phone] Encounter Details Date Type Department Care Team (Late st Contact Info) Description 05/18/2020 Prep for Procedure [facility] Pre-Admission Testing [place] [address] Kinjal Almeida MD [address] [address] Social History Tobacco Use Types Packs/Day Years [...] have Coronavirus / COVID-19? No / Unsure 05/18/2020 1:38 PM CDT documented as of this encounter Plan of Treatment Not on file documented as of this encounter Results * XR ABD KUB (05/30/2020 10:16 AM CDT) Anatomical Region Laterality Modality Abdomen Radiographic Yudelka ging 05/30/2020 1:28 PM CDT Impressions 05/30/2020 1:31 PM CDT IMPRESSION: Left nephrolithiasis. Interpreted By: Irving Robison MD, 05/30/2020 1:28 PM Narrative 05/30/2020 1:31 PM CDT EXAMINATION: XR ABD KUB HISTORY: Preop, nephrolithiasis DATE: 05/30/2020 10:08 AM COMPARISON: None TECHNIQUE: Supine AP view of the abdomen FINDINGS: There is a large irregular calyx-shaped calculus overlying the upper pole left kidney measuring 3 cm. Additional tiny stones measuring up to 3 mm overlying the lower pole left kidney. Multiple small round calcifications in the pelvis, most of which are likely phleboliths. Otherwise no abnormal soft tissue calcifications identified. Nonobstructive gas pattern. Procedure Note Irving Robison MD - 05/30/2020 EXAMINATION: XR ABD KUB HISTORY: Preop, nephrolithiasis DATE: 05/30/2020 10:08 AM COMPARISON: None TECHNIQUE: Supine AP view of the abdomen FINDINGS: There is a large irregular calyx-shaped calculus overlying theupper pole left kidney measuring 3 cm. Additional tiny stones measuringup to 3 mm overlying the lower pole left kidney. Multiple small roundcalcifications in the pelvis, most of which are likely phleboliths.Otherwise no abnormal soft tissue calcifications identified.Nonobstructive gas pattern. IMPRESSION: Left nephrolithiasis. Interpreted By: Irving Robison MD, 05/30/2020 1:28 PM Kinjal Almeida MD GENERAL IMAGING F inal Result * PRE-SURGICAL/PRE-PROCEDURE CORONAVIRUS (COVID 19) (05/27/2020 10:10 AM CDT) CORONAVIRUS SARS COV 2 PCR (RESP) NOT DETECTED NOT DETECTED 05/29/2020 10:52 AM CDT [facility] Comment: A Not Detected (negative) test result for this test means that SARS- CoV-2 RNA was not present in the specimen above the limit of detection. A negative result does not rule out the possibility of COVID-19 and should not be used as the sole basis for treatment or patient management decisions. If COVID-19 is still suspected, based on exposure history together with other clinical findings, re-testing should be considered in consultation with public health authorities. Laboratory test results should always be considered in the context of clinical observations and epidemiological data in making a final diagnosis and patient management decisions. Please review the Fact Sheets and FDA authorized labeling available for health care providers and patients using the following websites: https://[email or web address].Appuri/home/Covid-19/HCP/Quest[facility]D/fact- sheet.html https://www.Bookitit.Appuri/home/Covid-19/Patients/ QuestIVD/fact-sheet.html This test has been authorized by the FDA under an Emergency Use Authorization (EUA) for use by authorized laboratories. Due to the current public health emergency, [facility] is receiving a high volume of samples from a wide variety of swabs and media for COVID-19 testing. In order to serve patients during this public health crisis, samples from appropriate clinical sources are being tested. Negative test results derived from specimens received in non-commercially manufactured viral collection and transport media, or in media and sample collection kits not yet authorized by FDA for COVID-19 testing should be cautiously evaluated and the patient potentially subjected to extra precautions such as additional clinical monitoring, including collection of an additional specimen. Methodology: Nucleic Acid Amplification Test (NAAT) includes PCR or TMA Additional information about COVID-19 can be found at the [facility] website: [email or web address].Appuri/Covid19. Test performed at [facility] [address] [facility] [place] [address] Director: GABE BRUCE DO,MPH NASOPHARYNGEAL SWAB / Unknown 05/27/2020 10:10 AM CDT Kinjal Almeida MD MICROBIOLOGY - [facility] ORDERABLES Final Result [facility] [id number] [place] [address], documented in this encounter Visit Diagnoses Diagnosis Preop examination- Primary Preoperative examination, unspecified Kidney stone on left side Calculus of kidney Preop examination Preoperative examination, unspecified Kidney stone on left side Calculus of kidney documented in this encounter Additional Health Concerns Infection Onset Date Last Indicated Resolved Time COVID-19 Rule Out 05/27/2020 05/27/2020 05/29/2020 10:53 AM CDT documented as of this encounter Care Teams Amusement Or Recreation Card Checker Relationship Specialty [place] [address] [place] [address] PCP - General FAMILY PRACTICE 05/11/19 documented as of this encounter
--- OUTSIDE RECORDS SUMMARY | 2025-05-22 15:35 | XMS_ITS | Encounter Summary ---
Author Organization [facility] Address [address] [place] [address] Care Team Providers Care Lan Administrator Name Role Phone Rip Monson MD Primary Care Provider [phone] Encounter Details Date Type Department Care Team (Late st Contact Info) Description 06/12/2024 24M Technologiest Message Enc [facility] Medical [facility] Family & Internal Medicine [facility] [id number] [place] [phone] [place]on [place] [id number] [place] [address] Appointment/Medicati ons Social History Tobacco Use Types Packs/Day Years [...] on file documented as of this encounter Progress Notes * Jazlyn Bay RN - 06/12/2024 2:59 PM CDT Can someone help pt with this? I am not sure if you can look up her active insurance? documented in this encounter Plan of Treatment Not on file documented as of this encounter Visit Diagnoses Not on filedocumented in this encounter Additional Health Concerns Assessment Noted Time PHQ-9 Depression Total Score: 1 12/28/19 22 10:50 AM MGMT CONSULTANT documented as of this encounter Care Teams Lan Administrator Relationship Specialty [place] [address] [place] [address] PCP - General FAMILY PRACTICE 05/11/19 documented as of this encounter
--- OUTSIDE RECORDS SUMMARY | 2025-05-22 15:35 | XMS_ITS | Encounter Summary ---
Author Organization [facility] Address [address] [place] [address] Care Team Providers Care Human Resources Receptionist Name Role Phone Rip Monson MD Primary Care Provider [phone] Encounter Details Date Type Department Care Team (Latest Contact Info) Description 07/16/2022 SHEEX Message Enc [facility] Medical Group Family & Internal Medicine [facility] [id number] [place] [phone] [place] [id number] [place] [address] Intermittent FMLA papers Social History Tobacco Use Types Packs/Day Years [...] Exposure Response Date Recorded In the last 10 days, have yo u been in contact with someone who was confirmed or suspected to have Coronavirus/COVID-19? No / Unsure 07/06/2022 2:34 PM CDT documented as of this encounter Plan of Treatment Not on file documented as of this encounter Visit Diagnoses Not on filedocumented in this encounter Additional Health Concerns Assessment Noted Time PHQ-9 Depression Total Score: 1 12/28/19 22 10:50 AM METAL STAMPER documented as of this encounter Care Teams Human Resources Receptionist Relationship Specialty [place] [address] [place] [address] PCP - General FAMILY PRACTICE 05/11/19 documented as of this encounter
--- OUTSIDE RECORDS SUMMARY | 2025-05-22 15:35 | XMS_ITS | Encounter Summary ---
Author Organization [facility] Address [address] [place] [address] Care Team Providers Care Section Hand Name Role Phone Rip Monson MD Primary Care Provider [phone] Encounter Details Date Type Department Care Team (Late st Contact Info) Description 11/22/2023 Orders Only [facility] Medical Group Family & Internal Medicine [facility] [id number] [place] [phone] Rip Monson MD [id number] [place] [phone] Social History Tobacco Use Types Packs/Day Years [...] Total Score: 1 12/28/19 22 10:50 AM VP REVENUE CYCLE documented as of this encounter Care Teams Section Hand Relationship Specialty [place] [address] [place] [address] PCP - General FAMILY PRACTICE 05/11/19 documented as of this encounter
--- OUTSIDE RECORDS SUMMARY | 2025-05-22 15:35 | XMS_ITS | Encounter Summary ---
Author Organization [facility] Address [address] [place] [address] Care Team Providers Care Oil Expert Name Role Phone Rip Monson MD Primary Care Provider [phone] Encounter Details Date Type Department Care Team (Late st Contact Info) Description 03/09/2024 AppsFlyert Message Enc [facility] Medical Group Family & Internal Medicine [facility] [id number] [place] [phone] Rip Monson MD [id number] [address] Attn:Carmen Social History Tobacco Use Types Packs/Day Years [...] Total Score: 1 12/28/19 22 10:50 AM MANAGER INSURANCE documented as of this encounter Care Teams Oil Expert Relationship Specialty [place] [address] [place] [address] PCP - General FAMILY PRACTICE 05/11/19 documented as of this encounter
[2025-05-22 15:38] VITALS: BP 117/88; PULSE 94; RESP 18; TEMP 36.6; O2SAT 99
== END 2025-05-22 17:08 | disposition home or self-care (01) ==
PROVIDERS: Emergency Provider Nurse Practitioner Family; PCP Family Medicine
DX: S93.402A Sprain of unspecified ligament of left ankle, initial encounter (principal); S96.912A Strain of unspecified muscle and tendon at ankle and foot level, left foot, initial encounter; W10.9XXA Fall (on) (from) unspecified stairs and steps, initial encounter; Q61.5 Medullary cystic kidney
CPT/HCPCS: 73610; 99213; G0463